=== PATIENT | female | born 1940 | race Asian ===

== ENCOUNTER 2016-10-02 05:34 | Day surgery (SDC) | payer MEDICARE, OTHER ==
[~2016-10-02] VITALS: Ht 157.5 cm; Wt 59.1 kg
[~2016-10-02 05:34] MED LIST: ASPI81TA2 PO; CALC1TAB15 PO; GLIP5 PO; GLUC-198 PO; LISI1TAB11 PO; METF500T4 PO; OMEG100019 PO; RINGERS SOLUTION,LACTATED 500 ML IV ONE; SIMV-260 PO; TETRACAINE HCL/PF 0.5% 4 ML OPHTHALMIC SOLUTION OS ONE; VITAD1000 PO
[2016-10-02] MEDS ORDERED: CYCLOPENTOLATE HCL 2% 2 ML OPHTHALMIC SOLUTION ONE (05:43)
[2016-10-02] MEDS ORDERED: MOXIFLOXACIN HCL 0.5% 3 ML OPHTHALMIC SOLUTION ONE (05:44)
[2016-10-02] MEDS ORDERED: DICLOFENAC SODIUM 0.1% 2.5 ML OPHTHALMIC SOLUTION ONE (05:44)
[2016-10-02] MEDS ORDERED: PHENYLEPHRINE HCL 2.5% 2 ML OPHTHALMIC SOLUTION ONE (05:44)
[2016-10-02] MEDS ORDERED: RINGERS SOLUTION,LACTATED 500 ML IV ONE (05:44)
[2016-10-02] MEDS ORDERED: TETRACAINE HCL/PF 0.5% 4 ML OPHTHALMIC SOLUTION ONE (05:44)
[2016-10-02] MEDS: PHENYLEPHRINE HCL 2.5% 2 ML OPHTHALMIC SOLUTION OS SCH ×3 (06:20→06:31)
[2016-10-02] MEDS: CYCLOPENTOLATE HCL 2% 2 ML OPHTHALMIC SOLUTION OS SCH ×3 (06:21→06:31)
[2016-10-02] MEDS: MOXIFLOXACIN HCL 0.5% 3 ML OPHTHALMIC SOLUTION OS SCH ×3 (06:21→06:40)
[2016-10-02] MEDS: DICLOFENAC SODIUM 0.1% 2.5 ML OPHTHALMIC SOLUTION OS SCH ×3 (06:21→06:40)
[2016-10-02 06:22] LABS: GLUCOSE,POINT OF CARE 174 MG/DL (70-110)
[2016-10-02] MEDS ORDERED: ACETAMINOPHEN/CODEINE 300-30 MG TABLET PO PRN (08:00)
[2016-10-02] MEDS ORDERED: AcetaZOLAMIDE 250 MG TABLET PO ONE (08:00)
[2016-10-02] MEDS ORDERED: AcetaZOLAMIDE 250 MG TABLET ONE (08:26)
[2016-10-02] MEDS ORDERED: TETRACAINE HCL/PF 0.5% 4 ML OPHTHALMIC SOLUTION OU ONE (10:00)
[2016-10-02] MEDS ORDERED: TETRACAINE HCL VISCOUS 0.5% 5 ML OPHTHALMIC SOLUTION OU ONE (10:00)
[2016-10-02] MEDS ORDERED: MOXIFLOXACIN HCL 0.5% 3 ML OPHTHALMIC SOLUTION OU ONE (10:00)
[2016-10-02] MEDS ORDERED: POVIDONE-IODINE 10% 15 ML SOLUTION UD TP ONE (10:00)
[2016-10-02] MEDS ORDERED: LIDOCAINE HCL/PF 1% 2 ML VIAL IM ONE (10:00)
[2016-10-02] MEDS ORDERED: HYALURONATE SODIUM 12 MG/ML 0.8 ML SYRINGE IO ONE (10:00)
[2016-10-02] MEDS ORDERED: HYALURONATE SOD/CHONDROITIN SOD 0.5 ML VIAL IO ONE (10:00)
[2016-10-02] MEDS ORDERED: BRIMONIDINE TARTRATE 0.15% 5 ML OPHTHALMIC SOLUTION OU ONE (10:00)
[2016-10-02] MEDS ORDERED: EPINEPHrine 1:1,000 [1 MG/ML] AMP SQ ONE (10:00)
[2016-10-02] MEDS ORDERED: FentaNYL CITRATE-PF 100 MCG/2 ML VIAL IVP ONE (12:00)
[2016-10-02] MEDS ORDERED: MIDAZOLAM HCL 2 MG/2 ML VIAL IVP ONE (12:00)
== END 2016-10-02 08:50 | disposition home or self-care (01) ==
LOC: SURGERY 05:34
PROVIDERS: ATTEND Ophthalmology
DX: E11.36 Type 2 diabetes mellitus with diabetic cataract (principal); I10 Essential (primary) hypertension; Z98.890 Other specified postprocedural states; Z98.41 Cataract extraction status, right eye; Z90.710 Acquired absence of both cervix and uterus
CPT/HCPCS: 66984; 82962; 93005; C1780; J0171; J2250; J3010; J3490 ×2; J7120